=== PATIENT | male | born 1990 | race African-American/Black ===

== ENCOUNTER 2021-04-10 15:49 | Emergency (ER) | payer MEDICAID ==
[~2021-04-10] VITALS: Ht 182.9 cm; Wt 65.0 kg
[2021-04-10 16:01] VITALS: BP 119/69
== END 2021-04-10 18:34 | disposition left against medical advice (07) ==
LOC: ER 15:49
DX: M54.9 Dorsalgia, unspecified (principal); Z53.21 Procedure and treatment not carried out due to patient leaving prior to being seen by health care provider